=== PATIENT | female | born 1940 | race Two or more races ===

== ENCOUNTER 2018-06-15 20:00 | Emergency (ER) | payer MEDICARE, MEDICAID ==
[~2018-06-15] VITALS: Ht 165.1 cm; Wt 63.5 kg
[2018-06-15] MEDS ORDERED: ONDANSETRON ODT 4 MG TAB.RAPDIS ONE (20:29)
[2018-06-15] MEDS ORDERED: HYDROCODONE/APAP 10-325 MG TABLET ONE (20:29)
[2018-06-15] MEDS ORDERED: HYDROCODONE/APAP 10-325 MG TABLET PO ONE (20:30)
[2018-06-15] MEDS ORDERED: ONDANSETRON ODT 4 MG TAB.RAPDIS SL ONE (20:30)
--- NOTE | 2018-06-15 20:56 | NUR ---
Patient discharged to home in stable conditon. Written and verbal after care instructions given. Patient verbalizes understanding of instructions. Patient ambulated with walker stable gait.
[2018-06-15 20:58] VITALS: BP 140/62
== END 2018-06-15 20:59 | disposition home or self-care (01) ==
LOC: ER 20:03
DX: M79.671 Pain in right foot (principal); Z71.6 Tobacco abuse counseling; E11.9 Type 2 diabetes mellitus without complications; F17.290 Nicotine dependence, other tobacco product, uncomplicated
CPT/HCPCS: A4663; Q0162

== ENCOUNTER 2018-08-28 11:02 | Day surgery (SDC) | payer MEDICARE, MEDICAID ==
[2018-08-28 11:42] LABS: BASOPHILS # (AUTO) 0.1 K/uL (0.0-8.0); BASOPHILS % (AUTO) 1.9 % (0.0-2.0); EOSINOPHILS # (AUTO) 0.1 K/uL (0.0-0.7); HEMATOCRIT 36.9 % (31.2-41.9); HEMOGLOBIN 11.8 g/dL (10.9-14.3); LYMPHOCYTES # (AUTO) 1.6 K/uL (20.0-40.0); LYMPHOCYTES % (AUTO) 25.9 % (20.5-51.5); MEAN CORPUSCULAR HEMOGLOBIN 23.6 uug (24.7-32.8); MEAN CORPUSCULAR HGB CONC 32 g/dL (32.3-35.6); MEAN CORPUSCULAR VOLUME 73.4 fL (75.5-95.3); MONOCYTES # (AUTO) 0.4 K/uL (2.0-10.0); MONOCYTES % (AUTO) 6.5 % (0.0-11.0); NEUTROPHILS # (AUTO) 3.9 K/uL (1.8-8.9); NEUTROPHILS % (AUTO) 63.7 % (38.5-71.5); PLATELET COUNT (AUTO) 166 K/uL (179-408); RED BLOOD CELL COUNT(AUTO) 5.02 MIL/uL (3.63-4.92); WHITE BLOOD COUNT (AUTO) 6.1 K/uL (3.8-11.8)
[2018-08-28 11:47] LABS: CARBON DIOXIDE 29 mmol/L (21-32); CHLORIDE 104 mmol/L (98-107); CREATININE 0.6 mg/dL (0.6-1.3); GLUCOSE 139 mg/dL (74-106); POTASSIUM 3.6 mmol/L (3.5-5.1); UREA NITROGEN, BLOOD 14 mg/dL (7-18)
[2018-08-28] MEDS ORDERED: IRR STERIL WATER FOR IRR 1000 ML BOTTLE IR ONE (13:20)
[2018-08-28] MEDS ORDERED: SIMETHICONE 40 MG/0.6 ML, 30ML BOTTLE MC ONE (13:20)
[2018-08-28] MEDS ORDERED: LIDOCAINE-MPF 2% 5 ML VIAL MC ONE (13:20)
[2018-08-28] MEDS ORDERED: IV LACTATED RINGERS SOLUTION 1,000 ML BAG MC ONE (13:20)
[2018-08-28] MEDS ORDERED: PROPOFOL 200 MG/20 ML BOTTLE IV ONE (13:20)
== END 2018-08-28 14:54 | disposition home or self-care (01) ==
LOC: DS 11:02
PROVIDERS: ATTEND Internal Medicine Gastroenterology
DX: D12.2 Benign neoplasm of ascending colon (principal); K44.9 Diaphragmatic hernia without obstruction or gangrene; K29.70 Gastritis, unspecified, without bleeding; K64.8 Other hemorrhoids; E11.9 Type 2 diabetes mellitus without complications; I10 Essential (primary) hypertension; J44.9 Chronic obstructive pulmonary disease, unspecified; G20 Parkinson's disease; F32.9 Major depressive disorder, single episode, unspecified; F41.9 Anxiety disorder, unspecified; F15.90 Other stimulant use, unspecified, uncomplicated; M19.90 Unspecified osteoarthritis, unspecified site; F17.210 Nicotine dependence, cigarettes, uncomplicated; Z95.818 Presence of other cardiac implants and grafts; Z79.84 Long term (current) use of oral hypoglycemic drugs; Z79.899 Other long term (current) drug therapy; Z98.41 Cataract extraction status, right eye; Z98.42 Cataract extraction status, left eye; Z86.73 Personal history of transient ischemic attack (TIA), and cerebral infarction without residual deficits; Z90.49 Acquired absence of other specified parts of digestive tract; Z98.890 Other specified postprocedural states
CPT/HCPCS: 36415; 43239; 45380; 71045; 80048; 82962; 85025; 85730; 88305; 88312; 88342; 93005; J3490; J7120 ×2; A4217; A4663

== ENCOUNTER 2021-05-31 16:03 | Emergency (ER) | payer MEDICARE, OTHER ==
[~2021-05-31] VITALS: Ht 165.1 cm; Wt 59.0 kg
[2021-05-31] MEDS ORDERED: methylPREDNISolone SOD SUCC 125 MG/2 ML VIAL IV ONE (16:15)
[2021-05-31] MEDS ORDERED: ALBUTEROL SULFATE 2.5 MG/3 ML NEBU NEB ONE (16:15)
[2021-05-31] MEDS ORDERED: IV NORMAL SALINE 500 ML BAG IV ONE (16:15)
[2021-05-31] MEDS ORDERED: IPRATROPIUM BROMIDE 0.5 MG/2.5 ML NEBU NEB ONE (16:15)
--- NOTE | 2021-05-31 16:15 | NUR ---
PT RESDPIRATORY STATUS IMPROVED, LESS WORK OF BREATHING.
[2021-05-31] MEDS ORDERED: ALBUTEROL SULFATE 2.5 MG/3 ML NEBU ONE ×2 (16:16→16:19)
[2021-05-31] MEDS ORDERED: IPRATROPIUM BROMIDE 0.5 MG/2.5 ML NEBU ONE (16:17)
[2021-05-31] MEDS ORDERED: methylPREDNISolone SOD SUCC 125 MG/2 ML VIAL ONE (16:21)
[2021-05-31 16:22] LABS: HEMATOCRIT 39.8 % (31.2-41.9); MEAN CORPUSCULAR HEMOGLOBIN 26.1 uug (24.7-32.8); MEAN CORPUSCULAR VOLUME 80.6 fL (75.5-95.3); PLATELET COUNT (AUTO) 180 K/uL (179-408)
[2021-05-31 16:28] LABS: CARBON DIOXIDE 25 mmol/L (21-32); CHLORIDE 100 mmol/L (98-107); GLUCOSE 185 mg/dL (74-106); POTASSIUM 4.2 mmol/L (3.5-5.1); UREA NITROGEN, BLOOD 12 mg/dL (7-18)
[2021-05-31 16:41] LABS: ALANINE AMINOTRANSFERASE 17 U/L (14-59); ALKALINE PHOSPHATASE 83 U/L (50-136); ASPARTATE AMINOTRANSFERASE 18 U/L (15-37); BILIRUBIN,DIRECT 0.1 mg/dL (0.0-0.2); BILIRUBIN,TOTAL 0.3 mg/dL (0.2-1.0); TOTAL PROTEIN, SERUM 7.5 g/dL (6.4-8.2)
[2021-05-31] MEDS ORDERED: OXYB5TAB16 PO (17:10)
[2021-05-31] MEDS ORDERED: OMEP40CA21 PO (17:10)
[2021-05-31] MEDS ORDERED: LOSA25TA27 PO (17:10)
[2021-05-31] MEDS ORDERED: DOCU100C36 PO (17:10)
[2021-05-31] MEDS ORDERED: PRAM0.253 PO (17:10)
[2021-05-31] MEDS ORDERED: ICOS1CAP PO (17:10)
[2021-05-31] MEDS ORDERED: CLOP75TA15 PO (17:10)
[2021-05-31] MEDS ORDERED: ATOR80TA PO (17:10)
[2021-05-31] MEDS ORDERED: SITA1TAB6 PO (17:10)
[2021-05-31] MEDS ORDERED: LEVO50TA8 PO (17:10)
[2021-05-31] MEDS ORDERED: GLIM1TAB18 PO (17:10)
[2021-05-31 17:33] LABS: ABG BASE EXCESS -2.5 mmol/L; ABG HCO3 21.4 mmol/L; ABG PCO2 34.1 mmHg (35.0-45.0); ABG PH 7.416 (7.350-7.450); ABG PO2 478.1 mmHg (75.0-100.0); ABG SITE LEFT RADIAL; ABG TOTAL HEMOGLOBIN 12.4 G/dL (12.0-16.0); COHb 1.9 % (0.5-1.5); MetHb 1.4 % (0.0-1.5); O2Hb 96.2 % (94.0-97.0); VENT MODE VENT - BILEVEL
--- NOTE | 2021-05-31 17:38 | NUR ---
RT REPLACED THE BIPAP WITH NC, 2 LITRE TO SEE HOW THE PT TOLERATE.
--- NOTE | 2021-05-31 18:01 | NUR ---
DR. CARMICHAEL ACCEPTED THE PT TO TELE. TRANSFER TO TELE PENDING ON BED AVAILABILITY.
[2021-05-31] MEDS ORDERED: REMEDY ESSENTIAL ZINC PASTE 113 GM TP PRN (18:30)
[2021-05-31] MEDS ORDERED: ACETAMINOPHEN 325 MG TABLET PO PRN (18:30)
[2021-05-31] MEDS ORDERED: ONDANSETRON 4 MG/2 ML VIAL IV PRN (18:30)
[2021-05-31] MEDS ORDERED: MAGNESIUM HYDROXIDE 30 ML LIQUID UDC PO PRN (18:30)
--- NOTE | 2021-05-31 19:25 | NUR ---
Patient and patient son want to sign out AMA. Dr Ricardo into re eval patient.
[2021-05-31] MEDS ORDERED: IPRATROPIUM BROMIDE 0.5 MG/2.5 ML NEBU NEB SCH (19:30)
[2021-05-31] MEDS ORDERED: ALBUTEROL SULFATE 2.5 MG/3 ML NEBU NEB SCH (19:30)
--- NOTE | 2021-05-31 19:34 | NUR ---
Called Dr Morgan and informed him that patient is signing out AMA.
--- NOTE | 2021-05-31 19:50 | NUR ---
Patient does not wish to proceed with medical care recommended by (Cathy ). Patient given information related to possible complications, up to and including , which could occur as a result of leaving the hospital at this time. Patient verbalizes understanding of risks involved due to leaving against medical advice. Patient has signed AMA form.
[2021-05-31] MEDS ORDERED: ATORVASTATIN 40 MG TABLET PO SCH (21:00)
[2021-06-01] MEDS ORDERED: GLIMEPIRIDE 2 MG TABLET PO SCH (08:00)
[2021-06-01] MEDS ORDERED: Medication Not On Formulary EA (Icosapent Ethyl (Vascepa) 1 GM) PO SCH (09:00)
[2021-06-01] MEDS ORDERED: LOSARTAN POTASSIUM 25 MG TABLET PO SCH (09:00)
[2021-06-01] MEDS ORDERED: METFORMIN PO SCH (09:00)
[2021-06-01] MEDS ORDERED: CLOPIDOGREL 75 MG TABLET PO SCH (09:00)
[2021-06-01] MEDS ORDERED: Medication Not On Formulary EA (Sitagliptin Phos/Metformin Hcl (Janumet 50-1,000 Mg Tabl PO SCH (09:00)
[2021-06-01] MEDS ORDERED: DOCUSATE SODIUM 100 MG CAPSULE PO SCH (09:00)
[2021-06-01] MEDS ORDERED: [UNRECOGNIZED DRUG - OTHER] PO SCH (09:00)
[2021-06-01] MEDS ORDERED: methylPREDNISolone SOD SUCC 40 MG/ML VIAL IV SCH (09:00)
[2021-06-01] MEDS ORDERED: LEVOTHYROXINE SODIUM 50 MCG TABLET PO SCH (09:00)
[2021-06-01] MEDS ORDERED: OXYBUTYNIN CHLORIDE 5 MG TABLET PO SCH (09:00)
[2021-06-01] MEDS ORDERED: PANTOPRAZOLE SODIUM 40 MG TABLET.DR PO SCH (09:00)
[2021-06-01] MEDS ORDERED: SITAGLIPTIN PO SCH (09:00)
[2021-06-01] MEDS ORDERED: Medication Not On Formulary EA (Atorvastatin Calcium (Lipitor) 1 TAB) PO SCH (09:00)
[2021-06-01] MEDS ORDERED: OMEGA-3 FATTY ACIDS/FISH OIL CAPSULE PO SCH (09:00)
[2021-06-01] MEDS ORDERED: Medication Not On Formulary EA (Omeprazole 1 CAP) PO SCH (09:00)
[2021-06-01] MEDS ORDERED: PRAMIPEXOLE 0.25 MG TABLET PO SCH (18:00)
== END 2021-05-31 19:51 | disposition left against medical advice (07) ==
LOC: ER 16:05
DX: J96.00 Acute respiratory failure, unspecified whether with hypoxia or hypercapnia (principal); T59.811A Toxic effect of smoke, accidental (unintentional), initial encounter; J70.5 Respiratory conditions due to smoke inhalation; F17.210 Nicotine dependence, cigarettes, uncomplicated; J44.1 Chronic obstructive pulmonary disease with (acute) exacerbation; J45.901 Unspecified asthma with (acute) exacerbation; Z53.29 Procedure and treatment not carried out because of patient's decision for other reasons; Z85.3 Personal history of malignant neoplasm of breast; X00.0XXA Exposure to flames in uncontrolled fire in building or structure, initial encounter; Y92.039 Unspecified place in apartment as the place of occurrence of the external cause; Z20.822 Contact with and (suspected) exposure to COVID-19; I10 Essential (primary) hypertension; Z79.84 Long term (current) use of oral hypoglycemic drugs; Z79.02 Long term (current) use of antithrombotics/antiplatelets; E11.65 Type 2 diabetes mellitus with hyperglycemia; E03.9 Hypothyroidism, unspecified; N32.81 Overactive bladder; K21.9 Gastro-esophageal reflux disease without esophagitis; Z79.890 Hormone replacement therapy
CPT/HCPCS: 36415; 36600; 71045; 80048; 80076; 82803; 83880; 84484; 85025; 87426; 93005; 94660; 96361; 96374; 99291; J2930; A4663; J3590; J7040

== ENCOUNTER 2021-07-06 09:14 | Inpatient (IN) | payer MEDICARE, OTHER ==
[~2021-07-06] VITALS: Ht 160 cm; Wt 58.1 kg
[~2021-07-06 09:14] MED LIST: ATOR80TA PO; CLOP75TA15 PO; DOCU100C36 PO; GLIM1TAB18 PO; ICOS1CAP PO; LEVO50TA8 PO; LOSA25TA27 PO; OMEP40CA21 PO; OXYB5TAB16 PO; PRAM0.253 PO; SITA1TAB6 PO
--- NOTE | 2021-07-06 09:31 | NUR ---
at bedside to examine pt.
[2021-07-06] MEDS ORDERED: BENZONATATE 100 MG CAPSULE PO ONE (09:45)
[2021-07-06] MEDS ORDERED: BENZONATATE 100 MG CAPSULE ONE (10:08)
[2021-07-06 10:09] LABS: MEAN CORPUSCULAR HEMOGLOBIN 26.1 uug (24.7-32.8); MEAN CORPUSCULAR VOLUME 79.1 fL (75.5-95.3); PLATELET COUNT (AUTO) 127 K/uL (179-408)
[2021-07-06 10:19] LABS: CARBON DIOXIDE 27 mmol/L (21-32); CHLORIDE 100 mmol/L (98-107); CREATININE 0.8 mg/dL (0.6-1.3); GLUCOSE 132 mg/dL (74-106); POTASSIUM 3.9 mmol/L (3.5-5.1); UREA NITROGEN, BLOOD 11 mg/dL (7-18)
--- NOTE | 2021-07-06 10:27 | NUR ---
spoke to charge nurse and patient is assigned to room 316 and nurse is
[2021-07-06 10:35] LABS: ALANINE AMINOTRANSFERASE 30 U/L (14-59); ALKALINE PHOSPHATASE 80 U/L (50-136); ASPARTATE AMINOTRANSFERASE 37 U/L (15-37); BILIRUBIN,DIRECT 0.2 mg/dL (0.0-0.2); BILIRUBIN,TOTAL 0.8 mg/dL (0.2-1.0); TOTAL PROTEIN, SERUM 6.8 g/dL (6.4-8.2)
[2021-07-06] MEDS ORDERED: CEFTRIAXONE /D5W 50ML IVPB **ER PYXIS IV ONE (11:43)
[2021-07-06] MEDS ORDERED: AZITHROMYCIN 500MG/ D5W 250ML IVPB **ER PYXIS ONLY IV ONE (11:44)
[2021-07-06 11:45] LABS: *BILIRUBIN,URIN NEGATIVE (NEGATIVE); *CLARITY,URINE CLEAR (CLEAR); *COLOR,URINE YELLOW (YELLOW); *KETONES,URINE NEGATIVE (NEGATIVE); *UROBILINOGEN,URINE 0.2 E.U./dl (NORMAL); LEUKOCYTE ESTERASE ,URINE 3+ (NEGATIVE); NITRITE, URINE NEGATIVE (NEGATIVE); PH,URINE 6.5 (5.0-8.0); UGLUCOSE NEGATIVE (NEGATIVE)
[2021-07-06] MEDS ORDERED: AZITHROMYCIN IV 500 MG in IV DEXTROSE 5% 250 ML IV ONE (11:45)
[2021-07-06] MEDS ORDERED: CEFTRIAXONE 1 G in IV DEXTROSE 5% 50 ML IV ONE (11:45)
--- NOTE | 2021-07-06 12:03 | NUR ---
Patient seen by attending Debby Singh who discussed care plan with both pt and daughter who remains at bedside, also with grad-daughter on the phone.
--- NOTE | 2021-07-06 12:04 | NUR ---
HR of 75, sbp of 134/60, rr16, 94% on RA.
[2021-07-06 12:11] LABS: *BLOOD, URINE TRACE (NEGATIVE)
[2021-07-06] MEDS ORDERED: REMEDY ESSENTIAL ZINC PASTE 113 GM TP PRN (12:30)
[2021-07-06] MEDS ORDERED: ONDANSETRON 4 MG/2 ML VIAL IV PRN (12:30)
[2021-07-06 12:31] LABS: RBC,URINE 0-3 /HPF (0-3); WBC,URINE 50-80 /HPF (0-3)
[2021-07-06 12:32] LABS: BACTERIA,URINE FEW /HPF (NONE SEEN); SQUAMOUS EPITHELIAL CELL,UR MODERATE /HPF (NONE SEEN)
[2021-07-06] MEDS ORDERED: DEXTROSE 50% 50 ML DISP.SYRIN IV PRN (12:45)
[2021-07-06 12:50] VITALS: BP 125/60
--- NOTE | 2021-07-06 12:50 | NUR ---
Admitted patient to telemetry unit with diagnosis of community acquired pneumonia. AO x 3 Farsi speaking. Sinus rhythm on the electronic device monitor with heart rate in the 80s. Blood pressure 125/60. Saturating 98% on room air. Patient ambulated to restroom with assistance. Daughter at the bedside. IV on left A/C 20G, flushing, patent, and intact. Awaiting admission orders.
[2021-07-06 16:32] VITALS: BP 106/38
[2021-07-06] MEDS: BLOOD SUGAR DIAGNOSTIC 1 EACH STRIP VI SCH ×2 (16:37→20:13)
[2021-07-06] MEDS: INSULIN REGULAR, HUMAN 300 UNIT/3 ML VIAL SQ PRN ×2 (16:38→20:14)
[2021-07-06] MEDS: OMEGA-3 FATTY ACIDS/FISH OIL CAPSULE PO SCH (16:46)
[2021-07-06] MEDS: PRAMIPEXOLE 0.25 MG TABLET PO SCH (16:46)
[2021-07-06] MEDS ORDERED: Medication Not On Formulary EA (Icosapent Ethyl (Vascepa) 1 GM) PO SCH (17:00)
[2021-07-06] MEDS ORDERED: PRAMIPEXOLE 0.25 MG TABLET PO SCH (18:00)
[2021-07-06] MEDS: ATORVASTATIN 40 MG TABLET PO SCH (20:12)
[2021-07-06 20:47] VITALS: BP 106/38
[2021-07-07 00:02] VITALS: BP 129/53
[2021-07-07] MEDS: ACETAMINOPHEN 325 MG TABLET PO PRN ×2 (02:35→09:34)
[2021-07-07 04:00] VITALS: BP_SYST 122; BP_SYST 91; BP_DIAS 37; BP_DIAS 55
--- NOTE | 2021-07-07 06:02 | NUR ---
Patient slept well this shift. Woke up intermittently to use bathroom, SBA provided. Farsi speaking, AAO x4. One episode of pain to back on right side and left side of face. Tylenol provided and effective. patient is SOB with moist non productive cough. 02 sats 89-90 when SOB, placed on 2 L 02 via NC. Telemetry is NSR, 63 BPM. Safety measures continued, call light within reach.
[2021-07-07 06:29] LABS: MEAN CORPUSCULAR HEMOGLOBIN 25.9 uug (24.7-32.8); MEAN CORPUSCULAR VOLUME 78.7 fL (75.5-95.3); PLATELET COUNT (AUTO) 127 K/uL (179-408)
[2021-07-07] MEDS: BLOOD SUGAR DIAGNOSTIC 1 EACH STRIP VI SCH ×4 (06:39→21:12)
[2021-07-07] MEDS: LEVOTHYROXINE SODIUM 50 MCG TABLET PO SCH (06:39)
[2021-07-07] MEDS: PANTOPRAZOLE SODIUM 40 MG TABLET.DR PO SCH (06:39)
[2021-07-07 06:40] LABS: CREATININE 0.8 mg/dL (0.6-1.3); MAGNESIUM 2.1 mg/dL (1.8-2.4); PHOSPHOROUS 2.9 mg/dL (2.5-4.9); POTASSIUM 4.2 mmol/L (3.5-5.1)
[2021-07-07 08:00] VITALS: BP 146/53
[2021-07-07] MEDS: INSULIN REGULAR, HUMAN 300 UNIT/3 ML VIAL SQ PRN ×4 (08:12→21:13)
[2021-07-07] MEDS: CLOPIDOGREL 75 MG TABLET PO SCH (08:40)
[2021-07-07] MEDS: OXYBUTYNIN CHLORIDE 5 MG TABLET PO SCH (08:40)
[2021-07-07] MEDS: OMEGA-3 FATTY ACIDS/FISH OIL CAPSULE PO SCH ×2 (08:40→16:45)
[2021-07-07] MEDS: DOCUSATE SODIUM 100 MG CAPSULE PO SCH (08:40)
[2021-07-07] MEDS: PRAMIPEXOLE 0.25 MG TABLET PO SCH ×2 (08:40→16:45)
[2021-07-07] MEDS: LOSARTAN POTASSIUM 25 MG TABLET PO SCH (08:41)
[2021-07-07] MEDS ORDERED: Medication Not On Formulary EA (Omeprazole 1 CAP) PO SCH (09:00)
[2021-07-07] MEDS ORDERED: ALBUTEROL SULFATE 2.5 MG/3 ML NEBU NEB PRN (09:30)
[2021-07-07] MEDS ORDERED: IPRATROPIUM BROMIDE 0.5 MG/2.5 ML NEBU NEB PRN (09:30)
[2021-07-07] MEDS: methylPREDNISolone SOD SUCC 40 MG/ML VIAL IV SCH ×3 (10:14→21:12)
[2021-07-07] MEDS ORDERED: CEFTRIAXONE 1 G in IV DEXTROSE 5% 50 ML IV SCH (11:00)
[2021-07-07] MEDS: GUAIFENESIN LA 600 MG TABLET.SA PO SCH ×2 (11:33→21:12)
[2021-07-07] MEDS ORDERED: AZITHROMYCIN IV 250 MG in IV DEXTROSE 5% 250 ML IV SCH (12:00)
[2021-07-07 12:44] VITALS: BP 140/59
[2021-07-07] MEDS: ALBUTEROL SULFATE 2.5 MG/3 ML NEBU NEB SCH ×2 (14:07→19:30)
[2021-07-07] MEDS: IPRATROPIUM BROMIDE 0.5 MG/2.5 ML NEBU NEB SCH ×2 (14:07→19:30)
[2021-07-07 16:42] VITALS: BP 137/60
[2021-07-07 20:00] VITALS: BP 125/49
[2021-07-07] MEDS: ATORVASTATIN 40 MG TABLET PO SCH (21:12)
--- NOTE | 2021-07-08 03:20 | NUR ---
Patient noted with increase coughing and SOB. 02 sats are 92% on RA, placed on 02 and increased to 98%. Atrovent and albuterol HHN provided by RT. Interventions effective.
[2021-07-08 04:18] VITALS: BP 133/61
[2021-07-08] MEDS: methylPREDNISolone SOD SUCC 40 MG/ML VIAL IV SCH (06:09)
[2021-07-08] MEDS: PANTOPRAZOLE SODIUM 40 MG TABLET.DR PO SCH (06:09)
[2021-07-08] MEDS: LEVOTHYROXINE SODIUM 50 MCG TABLET PO SCH (06:10)
[2021-07-08 06:19] LABS: HEMATOCRIT 36.9 % (31.2-41.9); MEAN CORPUSCULAR HEMOGLOBIN 25.8 uug (24.7-32.8); MEAN CORPUSCULAR VOLUME 79.1 fL (75.5-95.3); PLATELET COUNT (AUTO) 137 K/uL (179-408)
[2021-07-08 06:31] LABS: CREATININE 0.9 mg/dL (0.6-1.3); PHOSPHOROUS 2.8 mg/dL (2.5-4.9); POTASSIUM 4.4 mmol/L (3.5-5.1)
[2021-07-08] MEDS: BLOOD SUGAR DIAGNOSTIC 1 EACH STRIP VI SCH (06:48)
--- NOTE | 2021-07-08 06:53 | NUR ---
Patient slept seldom today. Farsi speaking, AAO x4. Patient is steady, BRP. Noted with Hyperglycemia this shift. Patient had one sandwich and tea during this shift. Will Endorse to day shift. Safety measures continued, call light within reach.
[2021-07-08] MEDS: IPRATROPIUM BROMIDE 0.5 MG/2.5 ML NEBU NEB SCH (07:44)
[2021-07-08] MEDS: ALBUTEROL SULFATE 2.5 MG/3 ML NEBU NEB SCH (07:44)
[2021-07-08 08:51] VITALS: BP 125/57
[2021-07-08] MEDS: CLOPIDOGREL 75 MG TABLET PO SCH (08:51)
[2021-07-08] MEDS: DOCUSATE SODIUM 100 MG CAPSULE PO SCH (08:51)
[2021-07-08] MEDS: GUAIFENESIN LA 600 MG TABLET.SA PO SCH ×2 (08:51→09:00)
[2021-07-08] MEDS: OMEGA-3 FATTY ACIDS/FISH OIL CAPSULE PO SCH (08:51)
[2021-07-08] MEDS: PRAMIPEXOLE 0.25 MG TABLET PO SCH (08:51)
[2021-07-08] MEDS: OXYBUTYNIN CHLORIDE 5 MG TABLET PO SCH (08:51)
[2021-07-08] MEDS: LOSARTAN POTASSIUM 25 MG TABLET PO SCH (08:51)
[2021-07-08] MEDS: INSULIN REGULAR, HUMAN 300 UNIT/3 ML VIAL SQ PRN (08:53)
[2021-07-08 09:11] LABS: ABG BASE EXCESS 0.6 mmol/L; ABG PCO2 34.5 mmHg (35.0-45.0); ABG SITE LEFT RADIAL; ABG TOTAL HEMOGLOBIN 12.4 G/dL (12.0-16.0); COHb 0.3 % (0.5-1.5); MetHb 0.3 % (0.0-1.5); VENT MODE ROOM AIR
[2021-07-08] MEDS ORDERED: METH4TAB3 PO (09:58)
[2021-07-08] MEDS ORDERED: CEPH500T PO (09:58)
[2021-07-08] MEDS ORDERED: AZIT250T13 PO (09:58)
[2021-07-08] MEDS ORDERED: NICO-780 TP (09:59)
--- NOTE | 2021-07-08 11:15 | NUR ---
Discharged patient via private car, daughter with her. belonging list signed. dc instructions given. skin intact. patient is ambulatory. the daughter translates for her. No acute distress identified. vs wnl.
[2021-07-08] MEDS ORDERED: predniSONE 10 MG TABLET PO SCH (18:00)
== END 2021-07-08 11:15 | disposition home or self-care (01) | DRG 177 ==
LOC: ER 09:14 → TELE3 12:20 → MEDSURG3 07-07 08:12
PROVIDERS: ADMIT Nurse Practitioner Acute Care; ATTEND Nurse Practitioner Acute Care
DX: J15.6 Pneumonia due to other Gram-negative bacteria (principal); J96.01 Acute respiratory failure with hypoxia; J44.0 Chronic obstructive pulmonary disease with (acute) lower respiratory infection; E87.1 Hypo-osmolality and hyponatremia; N39.0 Urinary tract infection, site not specified; J44.1 Chronic obstructive pulmonary disease with (acute) exacerbation; E11.9 Type 2 diabetes mellitus without complications; E03.9 Hypothyroidism, unspecified; F17.200 Nicotine dependence, unspecified, uncomplicated; I25.10 Atherosclerotic heart disease of native coronary artery without angina pectoris; K59.00 Constipation, unspecified; Z20.822 Contact with and (suspected) exposure to COVID-19; Z95.5 Presence of coronary angioplasty implant and graft; Z85.3 Personal history of malignant neoplasm of breast; Z79.84 Long term (current) use of oral hypoglycemic drugs; B96.89 Other specified bacterial agents as the cause of diseases classified elsewhere; H91.90 Unspecified hearing loss, unspecified ear
CPT/HCPCS: 36415; 36600; 71045; 83605; 83735; 84100; 84484; 85025; 85730; 87040; 87070; 87086; 93005; 94640; 94664; 97161; A4663; G0378; J0456; J0696; J1815; J2920; J3590; J7050; U0003

== ENCOUNTER 2023-07-24 18:56 | Emergency (ER) | payer MEDICARE, OTHER ==
[~2023-07-24] VITALS: Ht 160 cm; Wt 59.0 kg
[~2023-07-24 18:56] MED LIST changes: +AZIT250T13 PO; +CEPH500T PO; +METH4TAB3 PO; +NICO-780 TP
[2023-07-24 19:52] LABS: BASOPHILS # (AUTO) 0.3 K/UL (0.0-0.2); DIFFERENTIAL COMMENT 1; EOSINOPHILS # (AUTO) 0.1 K/uL (0.0-0.7); EOSINOPHILS % (AUTO) 1.6 % (0.0-7.0); HEMATOCRIT 36.1 % (31.2-41.9); HEMOGLOBIN 12.2 g/dL (10.9-14.3); LYMPHOCYTES # (AUTO) 0.7 K/uL (0.8-4.8); LYMPHOCYTES % (AUTO) 8.6 % (20.5-51.5); MEAN CORPUSCULAR HEMOGLOBIN 28.1 uug (24.7-32.8); MEAN CORPUSCULAR HGB CONC 34 g/dL (32.3-35.6); MEAN CORPUSCULAR VOLUME 82.9 fL (75.5-95.3); MONOCYTES # (AUTO) 0.4 K/uL (0.1-1.30); MONOCYTES % (AUTO) 5.1 % (0.0-11.0); NEUTROPHILS # (AUTO) 6.4 K/uL (1.8-8.9); NEUTROPHILS % (AUTO) 80.7 % (38.5-71.5); PLATELET COUNT (AUTO) 214 K/uL (179-408); RED BLOOD CELL COUNT(AUTO) 4.36 MIL/uL (3.63-4.92); RED CELL DISTRIBUTION WIDTH 14.5 % (12.3-17.7); WHITE BLOOD COUNT (AUTO) 7.9 K/uL (3.8-11.8)
[2023-07-24 20:16] LABS: ALANINE AMINOTRANSFERASE 9 U/L (14-59); ALBUMIN 3.5 g/dL (3.4-5.0); ALKALINE PHOSPHATASE 91 U/L (50-136); ASPARTATE AMINOTRANSFERASE 14 U/L (15-37); BILIRUBIN,DIRECT 0.1 mg/dL (0.0-0.2); BILIRUBIN,TOTAL 0.4 mg/dL (0.2-1.0); CALCIUM 9.3 mg/dL (8.5-10.1); CARBON DIOXIDE 26 mmol/L (21-32); CHLORIDE 101 mmol/L (98-107); CREATININE 0.6 mg/dL (0.6-1.3); GLUCOSE 97 mg/dL (74-106); NT-PRO BNP 94 pg/mL (0-125); POTASSIUM 3.9 mmol/L (3.5-5.1); SODIUM SERUM 136 mmol/L (136-145); TOTAL PROTEIN, SERUM 6.9 g/dL (6.4-8.2); UREA NITROGEN, BLOOD 16 mg/dL (7-18)
[2023-07-24] MEDS ORDERED: ALBU18HF2 INH (21:18)
[2023-07-24] MEDS ORDERED: AZIT250T13 PO (21:18)
[2023-07-24] MEDS ORDERED: GUAI5SYR PO (21:18)
[2023-07-25 01:01] VITALS: BP 114/78; TEMP 98; O2SAT 98
== END 2023-07-25 01:02 | disposition home or self-care (01) ==
LOC: ER 18:58
DX: J20.9 Acute bronchitis, unspecified (principal); J44.9 Chronic obstructive pulmonary disease, unspecified; R05.9 Cough, unspecified; G20.A1 Parkinson's disease without dyskinesia, without mention of fluctuations; E11.9 Type 2 diabetes mellitus without complications; Z79.899 Other long term (current) drug therapy; Z98.890 Other specified postprocedural states; Z20.822 Contact with and (suspected) exposure to COVID-19
CPT/HCPCS: 36415; 71045; 84484; 85025; 87040; A4606; A4663

== ENCOUNTER 2023-11-04 17:19 | Inpatient (IN) | payer MEDICARE, OTHER ==
[~2023-11-04] VITALS: Ht 160 cm; Wt 45.8 kg
[~2023-11-04 17:19] MED LIST changes: +ALBU18HF2 INH; +GUAI5SYR PO
[2023-11-04] MEDS ORDERED: FLUT1BLS6 IH (17:47)
[2023-11-04] MEDS ORDERED: ALPR0.5T8 PO (17:47)
[2023-11-04] MEDS ORDERED: ROSU10TA2 PO (17:47)
[2023-11-04] MEDS ORDERED: ESCI10TA PO (17:47)
[2023-11-04] MEDS ORDERED: LETR2.5T PO (17:47)
[2023-11-04] MEDS ORDERED: MEMA10TA PO (17:47)
[2023-11-04] MEDS ORDERED: FERR220S16 PO (17:47)
[2023-11-04] MEDS ORDERED: OLAN2.5T3 PO (17:47)
[2023-11-04] MEDS ORDERED: GABA-532 PO (17:47)
[2023-11-04] MEDS ORDERED: LIDOCAINE HCL 2% 20 ML VIAL ONE (18:05)
[2023-11-04 18:21] LABS: BASOPHILS % (AUTO) 0.6 % (0.0-2.0); EOSINOPHILS # (AUTO) 0.1 K/uL (0.0-0.7); EOSINOPHILS % (AUTO) 1.2 % (0.0-7.0); HEMATOCRIT 37.8 % (31.2-41.9); HEMOGLOBIN 12.2 g/dL (10.9-14.3); LYMPHOCYTES # (AUTO) 1.1 K/uL (0.8-4.8); LYMPHOCYTES % (AUTO) 13.3 % (20.5-51.5); MEAN CORPUSCULAR HEMOGLOBIN 27.7 uug (24.7-32.8); MEAN CORPUSCULAR HGB CONC 32 g/dL (32.3-35.6); MEAN CORPUSCULAR VOLUME 86.1 fL (75.5-95.3); MONOCYTES # (AUTO) 0.7 K/uL (0.1-1.30); MONOCYTES % (AUTO) 7.8 % (0.0-11.0); NEUTROPHILS # (AUTO) 6.6 K/uL (1.8-8.9); NEUTROPHILS % (AUTO) 77.1 % (38.5-71.5); PLATELET COUNT (AUTO) 160 K/uL (179-408); RED BLOOD CELL COUNT(AUTO) 4.39 MIL/uL (3.63-4.92); WHITE BLOOD COUNT (AUTO) 8.6 K/uL (3.8-11.8)
[2023-11-04 18:27] LABS: DIFFERENTIAL COMMENT 1
[2023-11-04 18:29] LABS: CALCIUM 9.2 mg/dL (8.5-10.1); CREATININE 0.7 mg/dL (0.6-1.3)
[2023-11-04 18:44] LABS: ERYTHROCYTE SEDIMENTATION RATE 82 MM/HR (0-20)
[2023-11-04 19:57] LABS: TOTAL VOLUME,BODY FLUID 15 mL
[2023-11-04 20:20] LABS: *BILIRUBIN,URIN NEGATIVE (NEGATIVE); *CLARITY,URINE CLEAR (CLEAR); *COLOR,URINE YELLOW (YELLOW); *KETONES,URINE NEGATIVE (NEGATIVE); *PROTEIN,URINE 1+ (NEGATIVE); *UROBILINOGEN,URINE 0.2 E.U./dl (NORMAL); LEUKOCYTE ESTERASE ,URINE 2+ (NEGATIVE); NITRITE, URINE NEGATIVE (NEGATIVE); UGLUCOSE NEGATIVE (NEGATIVE)
[2023-11-04 20:31] LABS: *BLOOD, URINE TRACE (NEGATIVE)
[2023-11-04 21:00] LABS: RBC,URINE 0-3 /HPF (0-3); SQUAMOUS EPITHELIAL CELL,UR MODERATE /HPF (NONE SEEN); WBC,URINE 50-80 /HPF (0-3)
[2023-11-04] MEDS ORDERED: REMEDY ESSENTIAL ZINC PASTE 113 GM TP PRN (21:00)
[2023-11-04] MEDS ORDERED: HYDROCODONE/APAP 5-325MG TABLET PO PRN (21:00)
[2023-11-04] MEDS ORDERED: MAGNESIUM HYDROXIDE 30 ML LIQUID UDC PO PRN (21:00)
[2023-11-04] MEDS ORDERED: DEXTROSE 50% 50 ML DISP.SYRIN IV PRN (21:00)
[2023-11-04] MEDS ORDERED: ONDANSETRON 4 MG/2 ML VIAL IV PRN (21:00)
[2023-11-04 21:01] LABS: BACTERIA,URINE MODERATE /HPF (NONE SEEN)
[2023-11-04] MEDS ORDERED: CEFTRIAXONE 1 G VIAL ONE (21:03)
[2023-11-04] MEDS: CEFTRIAXONE 2 G in IV DEXTROSE 5% 100 ML IV ONE (21:15)
[2023-11-04] MEDS ORDERED: VANCOMYCIN IV 200 ML ONE (21:22)
[2023-11-04 21:33] LABS: POLYNUCLEAR, BODY FLUID 92 % (0-25 %)
[2023-11-04 21:34] LABS: MONOCYTES,BODY FLUID 5 %
[2023-11-04] MEDS: VANCOMYCIN IV 1,000 MG in IV DEXTROSE 5% 250 ML IV ONE (22:16)
[2023-11-04 22:54] VITALS: BP 126/54; TEMP 98; O2SAT 92
[2023-11-04] MEDS: BLOOD SUGAR DIAGNOSTIC 1 EACH STRIP VI SCH (23:21)
[2023-11-04] MEDS: IV NS 1000 ML 1,000 ML IV PRN (23:31)
[2023-11-05] MEDS: PANTOPRAZOLE SODIUM 40 MG TABLET.DR PO SCH (06:38)
[2023-11-05 07:04] LABS: CALCIUM 9.2 mg/dL (8.5-10.1); CREATININE 0.6 mg/dL (0.6-1.3); MAGNESIUM 1.7 mg/dL (1.8-2.4); PHOSPHOROUS 3.3 mg/dL (2.5-4.9)
[2023-11-05 07:06] LABS: BASOPHILS % (AUTO) 0.7 % (0.0-2.0); EOSINOPHILS # (AUTO) 0.1 K/uL (0.0-0.7); EOSINOPHILS % (AUTO) 1.7 % (0.0-7.0); HEMATOCRIT 36.8 % (31.2-41.9); HEMOGLOBIN 11.9 g/dL (10.9-14.3); LYMPHOCYTES % (AUTO) 12.9 % (20.5-51.5); MEAN CORPUSCULAR HEMOGLOBIN 27.8 uug (24.7-32.8); MEAN CORPUSCULAR HGB CONC 32 g/dL (32.3-35.6); MEAN CORPUSCULAR VOLUME 85.6 fL (75.5-95.3); MONOCYTES # (AUTO) 0.5 K/uL (0.1-1.30); NEUTROPHILS # (AUTO) 5.8 K/uL (1.8-8.9); NEUTROPHILS % (AUTO) 77.7 % (38.5-71.5); PLATELET COUNT (AUTO) 160 K/uL (179-408); RED BLOOD CELL COUNT(AUTO) 4.29 MIL/uL (3.63-4.92); RED CELL DISTRIBUTION WIDTH 15.2 % (12.3-17.7); WHITE BLOOD COUNT (AUTO) 7.5 K/uL (3.8-11.8)
[2023-11-05 07:38] LABS: DIFFERENTIAL COMMENT 1
[2023-11-05 07:54] LABS: THYROID STIMULATING HORMONE 2.708 mIU/mL (0.358-3.740)
[2023-11-05] MEDS: INSULIN REGULAR, HUMAN 300 UNIT/3 ML VIAL SQ PRN (08:00)
[2023-11-05] MEDS ORDERED: HOME MED MISCELLANEOUS XX SCH ×4 (08:30)
[2023-11-05] MEDS ORDERED: ALBUTEROL SULFATE 2.5 MG/3 ML NEBU NEB PRN (08:45)
[2023-11-05] MEDS ORDERED: ESCITALOPRAM OXALATE 10 MG TABLET PO SCH (09:00)
[2023-11-05] MEDS: DOCUSATE SODIUM 100 MG CAPSULE PO SCH (09:13)
[2023-11-05] MEDS: FERROUS SULFATE 325 MG TABEC PO SCH (09:14)
[2023-11-05] MEDS: LOSARTAN POTASSIUM 25 MG TABLET PO SCH (09:14)
[2023-11-05] MEDS: CLOPIDOGREL 75 MG TABLET PO SCH (09:15)
[2023-11-05] MEDS: PRAMIPEXOLE 0.25 MG TABLET PO SCH (09:15)
[2023-11-05] MEDS: MEMANTINE HCL 10 MG TABLET PO SCH (09:15)
[2023-11-05] MEDS: MAGNESIUM OXIDE 400 MG TABLET PO ONE (11:29)
[2023-11-05 11:58] VITALS: BP 117/51; TEMP 98.4; O2SAT 94
[2023-11-05] MEDS ORDERED: NICOTINE 21 MG/24HR PATCH TD SCH (14:00)
[2023-11-05] MEDS: PROTEIN SUPPLEMENT (PROSTAT) 30 ML LIQUID PO SCH (14:07)
[2023-11-05 15:33] VITALS: BP 134/61; TEMP 98.1; O2SAT 95
[2023-11-05] MEDS: LETROZOLE 2.5 MG PO SCH (16:55)
[2023-11-05] MEDS: NICOTINE 21 MG/24HR PATCH TD SCH (16:56)
[2023-11-05] MEDS: VASCEPA 1 GM PO SCH (16:56)
[2023-11-05] MEDS ORDERED: GABAPENTIN 100 MG CAPSULE PO SCH (18:00)
[2023-11-05] MEDS: OXYBUTYNIN CHLORIDE 5 MG TABLET PO SCH (18:11)
[2023-11-05] MEDS: ALPRAZOLAM 0.5 MG TABLET PO SCH (18:11)
[2023-11-05] MEDS: VANCOMYCIN HCL 750 MG in IV DEXTROSE 5% 250 ML IV SCH (18:12)
[2023-11-05 20:00] VITALS: BP 150/67; TEMP 97.6; O2SAT 95
[2023-11-05] MEDS: CEFTRIAXONE 2 G in IV DEXTROSE 5% 50 ML IV SCH (20:04)
[2023-11-05] MEDS: ROSUVASTATIN 10 MG PO SCH (20:47)
[2023-11-05] MEDS: OLANZAPINE 2.5 MG TABLET PO SCH (20:47)
[2023-11-05] MEDS ORDERED: CEFTRIAXONE 1 G in IV DEXTROSE 5% 50 ML IV SCH (21:00)
[2023-11-06] MEDS: TEMAZEPAM 15 MG CAPSULE PO PRN (00:08)
[2023-11-06 06:00] VITALS: BP 135/63; TEMP 98.3; O2SAT 94
[2023-11-06] MEDS: LEVOTHYROXINE SODIUM 50 MCG TABLET PO SCH (06:57)
[2023-11-06] MEDS ORDERED: GLIMEPIRIDE 2 MG TABLET PO SCH (08:00)
[2023-11-06] MEDS: ESCITALOPRAM OXALATE 10 MG TABLET PO SCH (08:57)
[2023-11-06] MEDS: GLIMEPIRIDE 1 MG PO SCH (08:59)
[2023-11-06] MEDS: TRELEGY ELLIPTA PO SCH (09:00)
[2023-11-06 11:13] VITALS: BP 108/61; TEMP 97.6; O2SAT 97
[2023-11-06] MEDS: QUETIAPINE FUMARATE 25 MG TABLET PO SCH ×2 (12:52→21:00)
[2023-11-06 16:07] VITALS: BP 121/59; TEMP 97.7; O2SAT 94
[2023-11-06] MEDS: ACETAMINOPHEN 325 MG TABLET PO PRN (17:04)
[2023-11-06 20:09] VITALS: BP 118/62; TEMP 97.5; O2SAT 96
[2023-11-06] MEDS: CEFTRIAXONE 2 G in IV DEXTROSE 5% 100 ML IV SCH (20:27)
[2023-11-06] MEDS: OLANZAPINE 10 MG VIAL IM ONE (22:41)
[2023-11-07 04:59] VITALS: BP 130/57; TEMP 98.2; O2SAT 96
[2023-11-07 07:47] LABS: BASOPHILS # (AUTO) 0.1 K/UL (0.0-0.2); BASOPHILS % (AUTO) 0.6 % (0.0-2.0); EOSINOPHILS % (AUTO) 0.1 % (0.0-7.0); HEMATOCRIT 40.8 % (31.2-41.9); HEMOGLOBIN 13.4 g/dL (10.9-14.3); LYMPHOCYTES # (AUTO) 1.4 K/uL (0.8-4.8); MEAN CORPUSCULAR HGB CONC 33 g/dL (32.3-35.6); MEAN CORPUSCULAR VOLUME 85.5 fL (75.5-95.3); MONOCYTES # (AUTO) 0.7 K/uL (0.1-1.30); MONOCYTES % (AUTO) 8.3 % (0.0-11.0); NEUTROPHILS # (AUTO) 6.6 K/uL (1.8-8.9); PLATELET COUNT (AUTO) 191 K/uL (179-408); RED BLOOD CELL COUNT(AUTO) 4.78 MIL/uL (3.63-4.92); RED CELL DISTRIBUTION WIDTH 14.7 % (12.3-17.7); WHITE BLOOD COUNT (AUTO) 8.9 K/uL (3.8-11.8)
[2023-11-07 08:02] LABS: DIFFERENTIAL COMMENT 1
[2023-11-07 08:20] LABS: CALCIUM 9.8 mg/dL (8.5-10.1); CARBON DIOXIDE 32 mmol/L (21-32); CHLORIDE 103 mmol/L (98-107); CREATININE 0.6 mg/dL (0.6-1.3); GLUCOSE 157 mg/dL (74-106); POTASSIUM 4.5 mmol/L (3.5-5.1); SODIUM SERUM 143 mmol/L (136-145); UREA NITROGEN, BLOOD 14 mg/dL (7-18)
[2023-11-07 12:06] VITALS: BP 137/59; TEMP 94.7; O2SAT 94
[2023-11-07] MEDS ORDERED: QUETIAPINE FUMARATE 25 MG TABLET PO SCH ×2 (13:00→17:00)
[2023-11-07] MEDS: DIVALPROEX SPRINKLE 125 MG CAP.SPRINK PO SCH (13:08)
[2023-11-07] MEDS: QUETIAPINE FUMARATE 25 MG TABLET PO SCH (13:08)
[2023-11-07] MEDS: GLUCERNA SHAKE 237 ML CAN PO SCH (13:10)
[2023-11-07 16:19] VITALS: BP 118/55; TEMP 97.5; O2SAT 93
[2023-11-07] MEDS: ALPRAZOLAM 0.5 MG TABLET PO SCH (17:26)
[2023-11-07 20:27] VITALS: BP 105/69; TEMP 98.6; O2SAT 96
[2023-11-08] MEDS: VANCOMYCIN HCL 750 MG in IV DEXTROSE 5% 250 ML IV SCH (00:22)
[2023-11-08 04:05] VITALS: BP 128/68; TEMP 98.5; O2SAT 94
[2023-11-08] MEDS: TRELEGY ELLIPTA INH SCH (10:21)
[2023-11-08 12:00] VITALS: BP 139/60; TEMP 97.6; O2SAT 97
[2023-11-08 16:29] VITALS: BP 100/50; TEMP 97.7; O2SAT 95
[2023-11-09 06:35] VITALS: BP 180/82; TEMP 98.2; O2SAT 93
[2023-11-09 06:56] VITALS: BP 149/76; O2SAT 94
[2023-11-09] MEDS ORDERED: VANCOMYCIN HCL 750 MG in IV DEXTROSE 5% 250 ML IV SCH ×2 (10:00→21:00)
[2023-11-09 11:50] VITALS: BP 108/50; TEMP 97.6; O2SAT 96
== END 2023-11-09 15:00 | DRG 548 ==
LOC: ER 17:24 → MEDSURG3 21:08
PROVIDERS: ADMIT Nurse Practitioner Acute Care; ATTEND Nurse Practitioner Acute Care
PROC: 0S9C3ZX Drainage of Right Knee Joint, Percutaneous Approach, Diagnostic (ICD-10-PCS; principal; 2023-11-04)
DX: M00.9 Pyogenic arthritis, unspecified (principal); G93.41 Metabolic encephalopathy; E44.0 Moderate protein-calorie malnutrition; Z68.1 Body mass index [BMI] 19.9 or less, adult; N39.0 Urinary tract infection, site not specified; F02.82 Dementia in other diseases classified elsewhere, unspecified severity, with psychotic disturbance; F02.A3 Dementia in other diseases classified elsewhere, mild, with mood disturbance; R64 Cachexia; F17.210 Nicotine dependence, cigarettes, uncomplicated; B96.89 Other specified bacterial agents as the cause of diseases classified elsewhere; J44.9 Chronic obstructive pulmonary disease, unspecified; E03.9 Hypothyroidism, unspecified; H91.13 Presbycusis, bilateral; Z78.1 Physical restraint status; G20.A1 Parkinson's disease without dyskinesia, without mention of fluctuations; E78.5 Hyperlipidemia, unspecified; I25.10 Atherosclerotic heart disease of native coronary artery without angina pectoris; Z95.5 Presence of coronary angioplasty implant and graft; E11.9 Type 2 diabetes mellitus without complications; G89.29 Other chronic pain; I10 Essential (primary) hypertension; M17.11 Unilateral primary osteoarthritis, right knee; E88.09 Other disorders of plasma-protein metabolism, not elsewhere classified; Z85.3 Personal history of malignant neoplasm of breast; Z79.02 Long term (current) use of antithrombotics/antiplatelets; Z79.84 Long term (current) use of oral hypoglycemic drugs; Z79.899 Other long term (current) drug therapy; Z79.811 Long term (current) use of aromatase inhibitors
CPT/HCPCS: 36415; 83735; 83986; 84100; 84443; 85025; 85651; 87040; 93005; C1758; G0378; J0696; J1815; J2358; J3370; J3490; J7040; J7050